=== PATIENT | male | born 1975 | race Caucasian/White ===

== ENCOUNTER 2018-06-15 17:02 | Emergency (ER) | payer BC, MEDICAID, OTHER ==
[2018-06-15 17:38] VITALS: BP 107/63
--- NOTE | 2018-06-15 18:16 | UC ---
Upper Extremity HPI - HPI Summary HPI Summary: 43 year old male presents for swelling to left elbow after slipping and falling landing on his elbow 1 week ago. States he has been able to use the arm without significant discomfort. Denies erythema, ecchymosis, decreased ROM, numbness, or tingling. - History of Current Complaint Chief Complaint: UCUpperExtremity Stated Complaint: LT ELBOW SWELLING Time Seen by Provider: 06/15/18 18:03 Hx Obtained From: Patient Pain Intensity: 5 - Allergies/Home Medications Allergies/Adverse Reactions: Allergies Allergy/AdvReac Type Severity Reaction Status Date / Time hay fever Allergy Eyes Uncoded 06/15/18 17:33 Itchy/Swollen/Red/Watery Home Medications: Home Medications Buprenorp/Nalox 2-0.5 MG SL TB [Suboxone 2-0.5 mg SL TAB*] 16 mg DAILY 06/15/18 [History Confirmed 06/15/18] Bupropion XL* [Wellbutrin XL *] 1 tab DAILY 06/15/18 [History Confirmed 06/15/18 ] PMH/Surg Hx/FS Hx/Imm Hx Previously Healthy: Yes Psychological History: Depression, Other - Substance abuse disorder - Surgical History Surgical History: Yes Surgery Procedure, Year, and Place: '12-01 intestinal section. Tonsils - Family History Known Family History: Positive: Non-Contributory - Social History Occupation: Works From/At Home Lives: With Family Alcohol Use: None Substance Use Type: None Smoking Status (MU): Heavy Every Day Tobacco Smoker Type: Cigarettes Amount Used/How Often: 1 PPD Length of Time of Smoking/Using Tobacco: 20 years Review of Systems All Other Systems Reviewed And Are Negative: Yes Constitutional: Negative: Fever, Chills Skin: Negative: Bruising, Other - lesions Motor: Negative: Decreased ROM, Weakness Neurovascular: Negative: Decreased Sensation Musculoskeletal: Positive: Other: - See HPI Is Patient Immunocompromised?: No Physical Exam - Summary Physical Exam Summary: GENERAL APPEARANCE: Well developed, well nourished, alert and cooperative, and appears to be in no acute distress. HEAD: Atraumatic. normocephalic. NECK: Neck supple, non-tender. CARDIAC: Normal S1 and S2. No S3, S4 or murmurs. Rhythm is regular. There is no peripheral edema, cyanosis or pallor. Extremities are warm and well perfused. Capillary refill is less than 2 seconds. LUNGS: Clear to auscultation and percussion without rales, rhonchi, wheezing or diminished breath sounds. ABDOMEN: Positive bowel sounds. Soft, nondistended, nontender. No guarding or rebound. No masses or hepatosplenomegally. MUSKULOSKELETAL: Mild tenderness and swelling of the left olecranon bursa with erythema. Full active painless ROM intact to left elbow. No joint erythema or tenderness. Normal muscular development. Peripheral pulses intact. NEUROLOGICAL: Strength and sensation symmetric and intact. SKIN: Skin normal color, texture and turgor with no lesions or eruptions. Triage Information Reviewed: Yes Vital Signs: Initial Vital Signs Temp 98.3 F 06/15/18 17:34 Pulse 55 06/15/18 17:34 Resp 15 06/15/18 17:34 BP 107/63 06/15/18 17:34 Pulse Ox 100 06/15/18 17:34 Vital Signs Reviewed: Yes Upper Extremity Course/Dx - Course Course Of Treatment: 43 year old male presents for swelling to left elbow after slipping and falling landing on his elbow 1 week ago. States he has been able to use the arm without significant discomfort. Denies erythema, ecchymosis, decreased ROM, numbness, or tingling. Afebrile. VSS. Exam revealed a swollen left olecranon bursa without erythema, ecchymosis, lesions, joint pain or tenderness, decrease in ROM. Sensation intact distally. As patient with without any point tenderness and had painless active ROM x-rays were deferred at this time. Recommend conservative treatment for traumatic olecranon burstitis using NSAIDs and compression. He was given referral to follow up with orthopedic surgery if symptoms persist. Warning symptoms were reviewed. Verbalizes understanding and agrees with POC. - Differential Dx/Diagnosis Differential Diagnosis/HQI/PQRI: Bursitis, Contusion, Fracture (Closed), Strain , Sprain Provider Diagnosis: Olecranon bursitis, left elbow Discharge - Sign-Out/Discharge Documenting (check all that apply): Patient Departure All imaging exams completed and their final reports reviewed: No Studies - Discharge Plan Condition: Stable Disposition: HOME Prescriptions: Naproxen [Naproxen 500 mg tab] 500 mg PO Q12HR #30 tablet Patient Education Materials: Elbow Bursitis (ED) Referrals: No Primary Care Phys,NOPCP [Primary Care Provider] - Cuong Nicloe MD [Medical Doctor] - (Call for appoinment if no improvement in symptoms.) Additional Instructions: You have some inflammation to the bursa (fluid sac) of your left elbow related to your injury. This will typically resolve on its own over the next couple weeks. Take naproxen 1 tab every 12 hours with food for next 7 days. After 7 days you may take every 12 hours as needed for pain. Wear the KARLA wrap to help keep some compression and the reduce swelling. May remove to shower. Follow up with Dr. Nicole, orthopedic surgery, if no improvement in symptoms. Call for appointment. Seek immediate medical attention in the emergency room if you develop fever greater than 100.5 F, chills, are unable to bend your elbow, develop redness, increased swelling, you are unable to bend your elbow, have numbness or tingling in hand or fingers, or any worsening of symptoms. - Billing Disposition and Condition Condition: STABLE Disposition: Home
== END 2018-06-15 18:23 | disposition home or self-care (01) ==
LOC: UCCORT 17:02
DX: M70.22 Olecranon bursitis, left elbow (principal); F32.9 Major depressive disorder, single episode, unspecified; F17.210 Nicotine dependence, cigarettes, uncomplicated; Z91.048 Other nonmedicinal substance allergy status
CPT/HCPCS: 99202; G0463